=== PATIENT | female | born 1945 | race Caucasian/White ===

== ENCOUNTER 2021-05-18 16:47 | Inpatient (IN) | payer MEDICARE, OTHER ==
[~2021-05-18] VITALS: Ht 162.6 cm; Wt 64.5 kg
[~2021-05-18 16:47] MED LIST: DELZICOL400 MG PO; LEVOTHYROXINE100 MCG PO
[2021-05-18] MEDS ORDERED: COLACE100 MG PO (17:54)
[2021-05-18] MEDS ORDERED: LOSARTAN POTASS25 MG PO (17:54)
--- NOTE | 2021-05-18 21:22 | NUR ---
REPORT RECEIVED FROM SOFTWARE VERIFICATION ENGINEERISSI NIEVES. pt TO ARRIVE TO [place] AFTER COVID RESULTS.
--- NOTE | 2021-05-18 22:12 | NUR ---
pt RESTING IN BED. MD AT BEDSIDE DISCUSSING PLAN OF CARE WITH PATIENT, ASSESSING PATIENT. VSS. TEA PROVIDED TO pt. IV SITE FLUSHED WNL AND IVF INFUSING ORDERED. [facility] MUHAMMAD AT BEDSIDE AT THIS TIME. IN ROOM.
[2021-05-18] MEDS ORDERED: MULTI VITAMIN1 EACH PO (22:29)
[2021-05-18] MEDS ORDERED: CALCIUM500 M1 PO (22:29)
--- NOTE | 2021-05-18 22:52 | NUR ---
pt ASSESSMENT COMPLETE. pt RATES PAIN 2/10 IN EPIGASTRIC AREA. DENIES NEED FOR PRN PAIN MEDICATION. RESTING IN BED DRINKING MAG CITRATE AT THIS TIME. pt DENIES NAUSEA. DENIES TOILETING NEEDS. CONSENT FOR SURGERY SIGNED. PHONE SQL PROGRAMMER ANALYST PROVIDED. CALL LIGHT IN REACH.
--- NOTE | 2021-05-18 23:33 | NUR ---
CALL LIGHT ANSWERED. SBA TO RESTROOM FOR VOID AND BACK TO BED. pt DENIES ANY NEEDS. IVF INFUSING WNL. SCDS ON.
--- NOTE | 2021-05-19 02:19 | NUR ---
CHECKED ON pt. RESTING IN BED WITH EYES CLOSED. BREATHING EQUAL AND UNLABORED. LIGHTS OFF IN ROOM.
--- NOTE | 2021-05-19 02:55 | NUR ---
pt SLEEPING, AWAKENS FOR VS. VSS. pt UP TO RESTROOM SBA FOR VOID AND BACK TO BED. NO BM AT THIS TIME, pt TRIED. pt DENIES ANY PAIN. IVF INFUSING WNL. BOWEL TONES ACTIVE, ABD SOFT, NON-TENDER WITH PALPATION. LIGHTS OFF IN ROOM. SCDS ON. CALL LIGHT IN REACH.
--- NOTE | 2021-05-19 04:20 | NUR ---
pt UP TO RESTROOM FOR VOID AND BACK TO BED, CAR DESIGNER SINTA ASSIST. NO BM, PASSING GAS. PHONE CALL TO MD, NEW ORDERS RECEIVED AND REPEATED BACK TO VERIFY.
--- NOTE | 2021-05-19 05:08 | NUR ---
pt BACK TO BED FROM RESTROOM AFTER BROWN LIQUID BM. FINISHED SECOND BOTTLE OF MAG CITRATE AT THIS TIME. STOOL SAMPLE SENT TO LAB. IVF INFUSING WNL. pt DENIES ADDITIONAL NEEDS AT THIS TIME, DISCONNECTED FROM SCDS AT REQUEST FOR QUICK ROUTE TO RESTROOM. CALL LIGHT WITHIN REACH.
--- NOTE | 2021-05-19 05:20 | NUR ---
TABULATING SUPERVISOR RN NOTIFIED THAT ANTIBIOTIC NEEDED AFTER STOOL SAMPLE OBTAINED.
--- NOTE | 2021-05-19 05:59 | NUR ---
ASSISTED PT WITH BSC, HAD LOOSE STOOL, BROWN WITH CHUNKS OF BROWN STOOL. DENIES CRAMPING. SITTING ON EDGE OF BED, WITH BSC NEXT TO BED.
--- NOTE | 2021-05-19 07:05 | NUR ---
Report received from Shyla MARINELLI. Pt on BSC, states ABD cramping progressively improving. IVF infusing WNL. States no needs at this time, reviewed POC with pt who is agreeable. Call light in reach.
--- NOTE | 2021-05-19 08:15 | NUR ---
Scheduled medications administered, assessment complete. Pt states cramping "better", still c/o ABD discomfort. IVF infusing WNL. Bowel tones active. Preop checklist complete. Pt has no further requests, call light in reach.
--- NOTE | 2021-05-19 09:07 | NUR ---
PATIENT IN CHAIR RESTING AT THIS TIME. PATIENT TO BSC IND. PATIENT REFUSED WASHCLOTH THIS AM. VITALS AND I&O'S CHARTED. LINENS CHANGED. CALL LIGHT IN REACH. NO FURTHER NEEDS AT THIS TIME.
[2021-05-19] MEDS ORDERED: LEVOTHYROXINE88 MCG PO (09:41)
[2021-05-19] MEDS ORDERED: PEPCID AC10 MG PO (09:42)
--- NOTE | 2021-05-19 09:42 | NUR ---
MED REC COMPLETE
--- NOTE | 2021-05-19 10:29 | NUR ---
Call light answered, new bag IVF hung. Pt states continues to have small, frequent loose BM, yellow and watery. Has no further needs at this time
--- NOTE | 2021-05-19 11:00 | NUR ---
Pt lives in a 1 story home with her spouse. NO DME and does not require any help. Awaiting Colonoscopy and plans on dc following. Spouse will assist if needed.
--- NOTE | 2021-05-19 11:30 | NUR ---
Rounded on patient, resting in chair talking with . No needs at this time, call light in reach.
--- NOTE | 2021-05-19 12:50 | NUR ---
Scheduled ABX infusing, pt updated re: plan of care. Pt agreeable and has no needs. States having less loose BM. assisted into bed, SCDs in place.
--- NOTE | 2021-05-19 13:23 | NUR ---
Pt to procedure at this time
--- NOTE | 2021-05-19 14:22 | NUR ---
05/19/21 1422 Rebecca Brown 1418-PATIENT ARRIVED TO PACU ON 2L NC RR EVEN. PATIENT AWAKE DENIES PAIN OR NAUSEA. LAYING LEFT LATERAL. ABDOMEN SOFT AND IVF INFUSING. PATIENT ENCOURAGED TO PASS GAS.
--- NOTE | 2021-05-19 14:50 | NUR ---
Pt returns from procedure, VSS. A+O. Tolerating sips of water. No pain, no n/v. New orders received. Will cont plan of care. Call light in reach
--- NOTE | 2021-05-19 14:58 | NUR ---
PT TAKEN TO DS FOR SCOPE. WILL CONNECT UPON RETURN
--- NOTE | 2021-05-19 15:30 | NUR ---
Pt tolerating juice, yogurt and fruit. No nausea or pain, on room air. A+O. Pt states she is "Ready to go home". Will continue to monitor, discussed pt condition with
--- NOTE | 2021-05-19 16:10 | NUR ---
Pt resting in bed, IVF infusing WNL. Has no needs at this time. Call light in reach, family at bedside, attentive to patient. Call light in reach.
[2021-05-19] MEDS ORDERED: METAMUCIL660 GM PO (18:05)
--- NOTE | 2021-05-19 18:17 | NUR ---
PATIENT IN CHAIR TALKING WITH PHARMACY. VITALS AND I&O'S CHARTED. IV TAKEN OUT BY RN. IN ROOM. CALL LIGHT IN REACH. NO FURTHER NEEDS AT THIS TIME.
--- NOTE | 2021-05-19 18:30 | NUR ---
PT DISCHARGED TO HOME WITH ALL BELONGINGS IN HAND. VERBALIZES UNDERSTANDING TO ALL EDUCATION. PTS TO DRIVE PT HOME. NO PAIN OR NEEDS. PT STABLE, VSS, A+O.
--- NOTE | 2021-05-19 21:09 | OR ---
[facility] [address] [place], [place] [address] Signed DATE OF OPERATION: 05/19/2021 SURGEON: Erlin Ybarra MD PREOPERATIVE DIAGNOSES: 1. Recent rectal bleeding. CT scan findings of left-sided colonic thickening, possible recurrence of colitis. 2. History of bonafide left-sided colitis in 2008. POSTOPERATIVE DIAGNOSES: 1. Diverticulosis of sigmoid and left colon, no evidence at all of acute colitis. 2. Internal hemorrhoids. 3. NO EVIDENCE OF acute diverticulitis. PROCEDURE: Total colonoscopy to cecum with biopsy of cecum, rectum, sigmoid, and left colon. ANESTHESIA: Intravenous sedation. Fentanyl 100 mcg, Versed 5 mg. INDICATION: This 75-year-old woman, presented to the emergency room last night and was evaluated by Dr. Louise with complaints of rectal bleeding and some amount of diarrhea. She underwent a CT scan of the abdomen, which showed possible thickening of the left colon. Notably, the patient had an episode of significant colitis of the left colon in 2008. She has not been on maintenance therapy for an ulcerative colitis or other colitis problems. Her white count was only 8.1. She only had mild tenderness. Her blood per rectum was relatively bright. She was admitted with presumptive diagnosis of recurrent colitis. She is known to have diverticulosis, but there was no evidence of mesenteric stranding to suggest acute diverticulitis proper. She was treated empirically with cefoxitin as well as intravenous steroids, hydrocortisone, anticipating diagnostic colonoscopy today to better characterize the problem. She understands the risks of bleeding, infection, and perforation related to colonoscopy and wished to proceed. FINDINGS: There was no colitis. She had numerous large diverticula, but certainly no evidence of inflammation there. She had internal hemorrhoids, which were friable and likely related to her rectal bleeding. Remaining colon was normal. There was no cancer and no polyp found. Electronically Signed By: ERLIN YBARRA MD 05/19/21 9997 PATIENT NAME: ASHU TESFAYE OPERATIVE REPORT DATE OF : 43 REPORT #: [id number] PHYSICIAN: ERLIN YBARRA MD PCP: ALEX CHOWDHURY PAC REPORT IS CONFIDENTIAL AND NOT TO BE RELEASED WITHOUT AUTHORIZATION [facility] [address] [place], [place] [address] Signed DESCRIPTION OF PROCEDURE: The patient was brought to the endoscopy suite and placed in lateral decubitus position, given intravenous sedation to a point of slurred speech and nystagmus. Digital rectal examination was normal. An Olympus video colonoscope was passed in the rectum and manipulated throughout the colon noting a very good bowel prep (two bottles of magnesium citrate only) and complete intubation to the cecum with identification of the ileocecal valve and appendiceal orifice. Biopsies were taken of the cecum that appeared normal. Scope was withdrawn and careful inspection upon withdrawal of scope showed only left-sided diverticulosis and absolutely no evidence of thickening, inflammation, or other pathologic finding. Biopsies were taken of the left colon as well as the sigmoid. There was one area that had a linear scar measuring only about 1 cm or so in size. This was photographed and biopsied as well. The scope was withdrawn and the rectum appeared normal. Biopsies were obtained. Retroflexed view was attempted, but was unsuccessful for whatever reason. Clearly noted, however, were internal hemorrhoidal complexes, very likely recently having bled, though not currently bleeding. The scope was removed and the patient was taken to recovery room in good condition. CONCLUDING DIAGNOSIS: No evidence of colitis whatsoever. There were diverticula, but no sign of occult diverticulitis noted either. PLAN: We will discontinue hydrocortisone as well as antibiotics. We will initiate a high-fiber diet. Discharge will be forthcoming in the near future and additional bleeding might be addressed by hemorrhoidal banding. MD BOY Kincaid/FLORES /[id number] cc: LANA Rowe MD Electronically Signed By: ERLIN YBARRA MD 05/19/21 2109 PATIENT NAME: ASHU TESFAYE OPERATIVE REPORT DATE OF : 43 REPORT #: [id number] PHYSICIAN: ERLIN YBARRA MD PCP: ALEX CHOWDHURY PAC REPORT IS CONFIDENTIAL AND NOT TO BE RELEASED WITHOUT AUTHORIZATION [facility] [address] [place], [place] [address] Signed Copies: LINDY LOUISE MD ~ Electronically Signed By: ERLIN YBARRA MD 05/19/21 2109 PATIENT NAME: ASHU TESFAYE OPERATIVE REPORT DATE OF : 43 REPORT #: [id number] PHYSICIAN: ERLIN YBARRA MD PCP: ALEX CHOWDHURY PAC REPORT IS CONFIDENTIAL AND NOT TO BE RELEASED WITHOUT AUTHORIZATION
--- NOTE | 2021-05-19 21:09 | HP ---
[facility] [address] [place], [place] [address] Signed ADMISSION DATE: 05/18/2021 REASON FOR ADMISSION: Bloody diarrhea, thickening on CT scan. HISTORY: This 75-year-old white woman is accompanied by her and she is known to me from the past. She presented to the emergency room at approximately 7:30 p.m., was evaluated by Dr. Louise with complaints of severe crampy abdominal pain. While in the course of her evaluation, she did go to the bathroom and had a fair amount of bloody diarrhea. A CT scan was performed, which showed findings of probable colitis of the left colon. There was diverticulosis without evidence of diverticulitis. The colitis was not certain and there was no evidence of associated small-bowel obstruction. Wall thickening and slightly featureless configuration was noted to the descending colon. It is notable that she was admitted and treated by me for colitis in 2008. Her presentation was rather similar. She was treated for typical ulcerative colitis at that time ultimately with mesalamine...she has not been on that medication for a long time however as her symptoms seemed to "go away". She has no family history of colon cancer. She has no family history of colitis either. PAST MEDICAL HISTORY: Does not include anticoagulants of any sort. She has had colonoscopy, appendectomy, and sinus surgery in the past. MEDICATIONS: Include losartan, levothyroxine, and recently Colace. She has a distant history of taking mesalamine but has not been taking it for quite some time. SOCIAL HISTORY: She is . She is accompanied by her . She lives in [place]. REVIEW OF SYSTEMS: She denies any shortness of breath or chest pain. She is slightly thirsty. She has mild lower abdominal pain bilaterally located but improved since the bowel movement. She has no hematemesis. She has not had chronic rectal bleeding or chronic diarrhea particularly. PHYSICAL EXAMINATION: Electronically Signed By: ERLIN YBARRA MD 05/19/21 2109 PATIENT NAME: ASHU TESFAYE HISTORY AND PHYSICAL DATE OF : 43 REPORT #: [id number] PHYSICIAN: ERLIN YBARRA MD PCP: ALEX CHOWDHURY PAC REPORT IS CONFIDENTIAL AND NOT TO BE RELEASED WITHOUT AUTHORIZATION [facility] [address] [place], [place] [address] Signed GENERAL: This is a very pleasant white woman, who looks to be in no significant distress. VITAL SIGNS: Temperature is 98.3, pulse 69, respiration 16, blood pressure 161/78. HEENT: Mucous membranes are slightly dry. Trachea is midline. CHEST: Shows normal respiratory excursion. Pulses regular. ABDOMEN: Nondistended. She has mild tenderness in the left side of the abdomen. No sign of ascites. There is no peritonitis by any means. EXTREMITIES: Show no clubbing, cyanosis, or edema. LABORATORY STUDIES: Show white count of 8.1, hematocrit of 44.2, platelets 199,000. Chem profile essentially normal. Creatinine 1.09. Liver enzymes normal. Lipase normal at 16. Urinalysis with a specific gravity of 1.003, otherwise negative. COVID serology is negative. ASSESSMENT: Very likely the patient has recurrent bout of colitis. Previous characterization of her colitis in 2008 was that of profound left-sided colitis, highly consistent with ulcerative colitis. She was treated with Asacol at that time with good effect and over time any medication addressing colitis was discontinued. I would recommend at this point, a partial bowel prep with magnesium citrate, IV fluid administration, intravenous steroid administration empirically (hydrocortisone 100 mg IV q.8 hours) and antibiotic therapy as well as stool studies to assess for C difficile or other enteric pathogens. Most likely given the findings, ulcerative colitis will be found. MD BOY Kincaid/ARIANNAL /[id number] cc: Dr. Alex Louise MD Electronically Signed By: ERLIN YBARRA MD 05/19/21 2109 PATIENT NAME: ASHU TESFAYE HISTORY AND PHYSICAL DATE OF : 43 REPORT #: [id number] PHYSICIAN: ERLIN YBARRA MD PCP: ALEX CHOWDHURY PAC REPORT IS CONFIDENTIAL AND NOT TO BE RELEASED WITHOUT AUTHORIZATION [address] [address] Signed Copies: LINDY LOUISE MD ~ Electronically Signed By: ERLIN YBARRA MD 05/19/21 2109 PATIENT NAME: ASHU TESFAYE HISTORY AND PHYSICAL DATE OF : 43 REPORT #: [id number] PHYSICIAN: ERLIN YBARRA MD PCP: ALEX CHOWDHURY PAC REPORT IS CONFIDENTIAL AND NOT TO BE RELEASED WITHOUT AUTHORIZATION
--- NOTE | 2021-05-20 15:58 | PATH ---
[facility] [address] [facility] [place] [address] Signed SPECIMEN(S): A CECUM COLON BIOPSY SPECIMEN(S): B DESCENDING/LEFT COLON BIOPSY SPECIMEN(S): C SIGMOID COLON BIOPSY SPECIMEN(S): D RECTUM SPECIMEN SOURCE: A. CECUM COLON BIOPSY B. DESCENDING/LEFT COLON BIOPSY C. SIGMOID COLON BIOPSY D. RECTUM CLINICAL HISTORY: Pre: Abdominal pain, bloody diarrhea, probable colitis. Post: Internal hemorrhoids, diverticulosis. MICROSCOPIC DESCRIPTION: Histologic sections of all submitted blocks are examined by light microscopy. These findings, together with the gross examination, support the pathologic diagnosis. FINAL PATHOLOGIC DIAGNOSIS: A. Colon, cecum, biopsy: - Colonic mucosa with no histopathologic abnormality. - Negative for active, chronic, or microscopic colitis. - Negative for granulomas, dysplasia or malignancy. B. Colon, descending/left, biopsy: - Colonic mucosa with no histopathologic abnormality. - Negative for active, chronic, or microscopic colitis. - Negative for granulomas, dysplasia or malignancy. C. Colon, sigmoid, biopsy: - Colonic mucosa with mild architectural distortion. - Negative for active, chronic, or microscopic colitis. - Negative for granulomas, dysplasia or malignancy. D. Rectum, biopsy: - Rectal mucosa with mild architectural distortion and hyperplastic mucosal changes. - Negative for active, chronic, or microscopic colitis. - Negative for granulomas, dysplasia or malignancy. - See comment. COMMENT: Regarding specimens C and D: Mild foci of crypt architectural distortion are PATIENT NAME: ASHU TESFAYE PATHOLOGY DATE OF : 43 REPORT #: [id number] PHYSICIAN: RANDY PATHOLOGY PCP: ALEX CHOWDHURY PAC REPORT IS CONFIDENTIAL AND NOT TO BE RELEASED WITHOUT AUTHORIZATION [facility] [address] [place], [place] [address] Signed present, which is nonspecific but suggests the possibility of previous mucosal injury. No evidence of active or chronic colitis is noted. NAL:cml:C2NR GROSS DESCRIPTION: Four specimens are received in four containers labeled with "DE". A. The specimen, labeled "DE, 1," and designated on the requisition "cecum biopsy," is received in formalin and consists of one fragment of pink-davies tissue (0.3 cm in greatest dimension). The specimen is submitted entirely in cassette A1. B. The specimen, labeled "DE, 2," and designated on the requisition "descending/left biopsy," is received in formalin and consists of three fragments of pink-davies tissue (0.2-0.3 cm in greatest dimension). The specimen is submitted entirely in cassette B1. C. The specimen, labeled "DE, 3," and designated on the requisition "sigmoid biopsy," is received in formalin and consists of two fragments of pink-davies tissue (0.2 and 0.3 cm in greatest dimension). The specimen is submitted entirely in cassette C1. D. The specimen, labeled "DE, 4," and designated on the requisition "rectum biopsy," is received in formalin and consists of one fragment of pink-davies tissue (0.3 cm in greatest dimension). The specimen is submitted entirely in cassette D1. AC (under the direct supervision of a pathologist) The Gross Description was prepared using a voice recognition system. The report was reviewed for accuracy; however, sound-alike word errors, addition and/or deletions may occur. If there is any question about this report, please contact Client Services. PERFORMING LABORATORY: The technical component was performed by [employer], [address] [place] [id number] (Major Assembly Lineman: Aga Forman MD; CLIA# [id number]). Professional interpretation was performed by [facility], [address] [address] (CLIA# [id number]). Diagnostician: Tere Gayle MD Pathologist Electronically Signed 05/20/2021 PATIENT NAME: ASHU TESFAYE PATHOLOGY DATE OF : 43 REPORT #: [id number] PHYSICIAN: RANDY PATHOLOGY PCP: ALEX CHOWDHURY PAC REPORT IS CONFIDENTIAL AND NOT TO BE RELEASED WITHOUT AUTHORIZATION [facility] [address] [place], [place] [address] Signed Copies: ~ PATIENT NAME: ASHU TESFAYE PATHOLOGY DATE OF : 43 REPORT #: [id number] PHYSICIAN: RANDY PERRY PCP: ALEX CHOWDHURY PAC REPORT IS CONFIDENTIAL AND NOT TO BE RELEASED WITHOUT AUTHORIZATION
--- NOTE | 2021-05-21 21:04 | DS ---
[facility] [address] [place], [place] [address] Signed ADMISSION DATE: 05/18/2021 DISCHARGE DATE: 05/19/2021 REASON FOR ADMISSION: This 75-year-old white woman had complaints of severe lower abdominal cramping pain and blood per rectum. She was evaluated in the emergency room by Dr. Louise and a CT scan was performed, which showed an interpretation by the radiologist with thickening of the left colon suggestive of colitis. Notably, the patient suffered a bout of similar such symptoms previously in 2008 and was admitted by me and found to have colitis. She was treated for ulcerative colitis for quite some time with mesalamine. Her white count was noted to be normal. She had mild left-sided abdominal tenderness and she had blood per rectum upon bowel movements. On that basis, she was admitted for further evaluation and care for probable recurrent colitis. PERTINENT PHYSICAL EXAMINATION: GENERAL: Showed a pleasant white woman, who does not look systemically toxic. NECK: Trachea is midline. CHEST: Clear. HEART: Regular without murmur. ABDOMEN: Soft. Mild tenderness throughout, more on the left side. EXTREMITIES: Show no clubbing, cyanosis, or edema. HOSPITAL COURSE: She was considered likely to have recurrent colitis and on that basis was treated empirically with hydrocortisone 100 mg IV q.8 hours, cefoxitin antibiotic and Pepcid. She was made n.p.o. except for a bowel prep and had two bottles of magnesium citrate as her prep. On April,, she underwent colonoscopy by me where she was found to have no evidence whatsoever of colitis, only diverticular changes but no sign of inflammation. She had no polyps. She did have significant internal hemorrhoids, which may have accounted for the bleeding. Following colonoscopy, she was withdrawn from her hydrocortisone and antibiotic regimen of course, given a regular diet and anticipates discharge to home today as she is feeling much better today. Electronically Signed By: ERLIN YBARRA MD 05/21/21 2104 PATIENT NAME: ASHU TESFAYE DISCHARGE SUMMARY DATE OF : 43 REPORT #: [id number] PHYSICIAN: ERLIN YBARRA MD PCP: ALEX CHOWDHURY PAC REPORT IS CONFIDENTIAL AND NOT TO BE RELEASED WITHOUT AUTHORIZATION [facility] [address] [place] [id number] Signed I suspect her main issue was that of internal hemorrhoids with bleeding. The etiology of her cramping pain cannot be explained readily. However, but certainly there is no evidence of colonic abnormality other than diverticulosis and no evidence of acute diverticulitis plan. If she should have recurrent bleeding, she will call my office at which point we will organize for outpatient hemorrhoidal banding. I have recommend she maintain high-fiber diet and fiber supplement if possible, Metamucil specifically one scoop p.o. daily. She will follow up as well with her usual provider, SHWETA Weston. DISCHARGE MEDICATIONS: 1. Metamucil one scoop p.o. daily. If she wishes, she can continue with Colace 100 mg p.o. daily, though I do not find it effective. 2. Losartan 25 mg p.o. daily. 3. Multivitamin one tablet p.o. daily. 4. Calcium carbonate 500 mg b.i.d. 5. Synthroid 80 mcg p.o. daily. 6. Loratadine 10 mg p.o. daily. DISCHARGE DIAGNOSES: 1. Lower abdominal pain with diarrhea (limited) and blood per rectum. 2. Colonoscopy confirming no evidence of acute colitis, only internal hemorrhoids and diverticulosis without inflammation. 3. Distant history of left-sided colitis in 2008. 4. Hypothyroidism. 5. Chronic constipation. 6. Hypertension. Erlin Ybarra MD /MODL /[id number] cc: SHWETA Weston. Lindy Louise MD Electronically Signed By: ERLIN YBARRA MD 05/21/21 2104 PATIENT NAME: ASHU TESFAYE DISCHARGE SUMMARY DATE OF : 43 REPORT #: [id number] PHYSICIAN: ERLIN YBARRA MD PCP: ALEX CHOWDHURY [facility] REPORT IS CONFIDENTIAL AND NOT TO BE RELEASED WITHOUT AUTHORIZATION [address] [address] Signed Copies: LINDY LOUISE MD ~ Electronically Signed By: ERLIN YBARRA MD 05/21/21 2104 PATIENT NAME: ASHU TESFAYE DISCHARGE SUMMARY DATE OF : 43 REPORT #: [id number] PHYSICIAN: ERLIN YBARRA MD PCP: ALEX CHOWDHURY PAC REPORT IS CONFIDENTIAL AND NOT TO BE RELEASED WITHOUT AUTHORIZATION
== END 2021-05-19 18:30 | disposition home or self-care (01) | DRG 395 ==
LOC: ED 16:47 → MS 16:48 → ED 16:48 → MS 16:48
PROVIDERS: ADMIT Surgery; ATTEND Surgery
PROC: 0DBN8ZX Excision of Sigmoid Colon, Via Natural or Artificial Opening Endoscopic, Diagnostic (ICD-10-PCS; 2021-05-19)
PROC: 0DBP8ZX Excision of Rectum, Via Natural or Artificial Opening Endoscopic, Diagnostic (ICD-10-PCS; 2021-05-19)
PROC: 0DBG8ZX Excision of Left Large Intestine, Via Natural or Artificial Opening Endoscopic, Diagnostic (ICD-10-PCS; 2021-05-19)
PROC: 0DBH8ZX Excision of Cecum, Via Natural or Artificial Opening Endoscopic, Diagnostic (ICD-10-PCS; principal; 2021-05-19 13:00)
DX: K64.8 Other hemorrhoids (principal); I10 Essential (primary) hypertension; E03.9 Hypothyroidism, unspecified; K57.30 Diverticulosis of large intestine without perforation or abscess without bleeding; K59.09 Other constipation; Z90.49 Acquired absence of other specified parts of digestive tract; Z87.891 Personal history of nicotine dependence; Z79.890 Hormone replacement therapy; Z79.899 Other long term (current) drug therapy
CPT/HCPCS: 51701; 74177; 80053; 81001; 83690; 85025; 87045; 87046; 87493; 88305; 99153; 99285-25; G0500; J0694; J1644; J1720; J2250; J3010; J7030; J7121; Q9967; U0003

== ENCOUNTER 2024-05-24 23:25 | Emergency (ER) | payer MEDICARE, OTHER ==
[~2024-05-24] VITALS: Ht 162.6 cm; Wt 63.6 kg
[~2024-05-24 23:25] MED LIST changes: +CALCIUM500 M1 PO; +COLACE100 MG PO; +LEVOTHYROXINE88 MCG PO; +LOSARTAN POTASS25 MG PO; +METAMUCIL660 GM PO; +MULTI VITAMIN1 EACH PO; +PEPCID AC10 MG PO
[2024-05-24] MEDS ORDERED: MAGNESIUM OXID420 MG PO (23:51)
[2024-05-25] MEDS ORDERED: HYDROCODONE BIT/ACETAMINOPHEN 5/325 MG 1 TAB HOME.PACK PO ONE (02:00)
[2024-05-25] MEDS ORDERED: HYDROCODON-ACE1 EA10 PO (02:02)
[2024-05-25 02:50] VITALS: BP 133/67
== END 2024-05-25 02:55 | disposition home or self-care (01) ==
LOC: ED 23:25
DX: M84.48XA Pathological fracture, other site, initial encounter for fracture (principal); M16.0 Bilateral primary osteoarthritis of hip; M48.061 Spinal stenosis, lumbar region without neurogenic claudication; E03.9 Hypothyroidism, unspecified; R03.0 Elevated blood-pressure reading, without diagnosis of hypertension; Z79.890 Hormone replacement therapy; Z79.899 Other long term (current) drug therapy
CPT/HCPCS: 72192; 99284; A9270

== ENCOUNTER 2024-07-31 03:40 | Emergency (ER) | payer MEDICARE, OTHER ==
[~2024-07-31] VITALS: Ht 162.6 cm; Wt 67.4 kg
--- OUTSIDE RECORDS SUMMARY | ~2024-07-31 | XMS | Continuity of Care Document ---
Demographics + + + | Address | [address] | | | [place] [address] | + + + | Preferred Language | Unknown | + + + | Marital Status | Unknown | + + + | Protestant Affiliation | Unknown | + + + | Race | White | + + + | Ethnic Group | Not or | + + + Author + + + | Author | [facility] | + + + | Organization | [facility] | + + + | Address | [address] | | | [place] [address] | + + + | Phone | | + + + Care Team Providers + + + + | Care Hog Buyer Name | Role | Phone | + + + + Unavailable | Unavailable | + + + + Allergies No information. Encounters No information. Functional Status No information. Immunizations No information. Medications No information. Problems + + + + | date | description | facility | + + + + | 2024-06-14 22:27:21 | Radiculopathy, lumbar | [facility] | | | region | | + + + + Procedures No information. Results/Labs No information. Social History +--------+ + + | date | description | facility | +--------+ + + Vital Signs No information."
[~2024-07-31 03:40] MED LIST changes: +HYDROCODON-ACE1 EA10 PO; +MAGNESIUM OXID420 MG PO
[2024-07-31] MEDS ORDERED: IBLOOD GLUCOSE TEST STRIP 1 EA TEST XX ONE (03:45)
[2024-07-31] MEDS ORDERED: fentaNYL citrate 100 MCG/2 ML VIAL IV PRN (04:00)
[2024-07-31 04:29] LABS: BASOPHILS 0.3 % (0-2); EOSINOPHILS 0.6 % (0-6); HEMATOCRIT 41.2 % (35.0-50.0); HEMOGLOBIN 14.1 g/dL (12.0-18.0); LYMPHOCYTES 9.9 % (24-44); MCHC 34.1 g/dl (30-36); MCV 93.8 fl (81-99); MONOCYTES 7.5 % (0-12); NEUTROPHILS 81.7 % (39-80); PLATELET COUNT 230 K/uL (140-440); RBC 4.39 M/ul (4.3-5.7); RDW 13.9 (10.5-15.0)
[2024-07-31 04:40] LABS: PARTIAL THROMBOPLASTIN TIME 26.2 Sec (22.9-41.3)
[2024-07-31 04:41] LABS: INR 1.02 (0.80-1.30); PROTIME 12.7 Sec (11.2-14.2)
[2024-07-31 04:47] LABS: ALBUMIN 3.3 g/dL (3.4-5.0); ALBUMIN/GLOBULIN RATIO 1.14 (1.1-2.4); ANION GAP 10.8 (7-21); BILIRUBIN, TOTAL 0.6 ng/dL (0.2-1.0); BUN/CREATININE RATIO 13.13 (6.0-28.6); CALCIUM 8.8 mg/dL (8.5-10.1); CREATININE, SERUM 0.99 mg/dL (0.55-1.02); POTASSIUM 3.8 mmol/L (3.5-5.1); PROTEIN, TOTAL 6.2 g/dL (6.4-8.2)
[2024-07-31] MEDS ORDERED: GABAPENTIN ER300 MG PO (04:54)
[2024-07-31] MEDS ORDERED: ondansetron HCL 4 MG/2 ML VIAL IV ONE (05:45)
[2024-07-31 05:59] LABS: AMPHETAMINES, URINE NEGATIVE (NEGATIVE); BARBITURATES, URINE NEGATIVE (NEGATIVE); BENZODIAZEPINE, URINE NEGATIVE (NEGATIVE); BUPRENORPHINE, URINE NEGATIVE (NEGATIVE); CANNABINOID, URINE NEGATIVE (NEGATIVE); COCAINE, URINE NEGATIVE (NEGATIVE); ECSTASY, URINE NEGATIVE (NEGATIVE); FENTANYL, URINE NEGATIVE (NEGATIVE); METHADONE, URINE NEGATIVE (NEGATIVE); OPIATES, URINE NEGATIVE (NEGATIVE); OXYCODONE, URINE NEGATIVE (NEGATIVE); PHENCYCLIDINE, URINE NEGATIVE (NEGATIVE)
[2024-07-31] MEDS ORDERED: SODIUM CHLORIDE 0.9% 1,000 ML IV ONE (06:30)
[2024-07-31] MEDS ORDERED: SODIUM CHLORIDE 0.9% 1,000 ML IV SCH (06:30)
[2024-07-31] MEDS ORDERED: K2 PLUS D3 TAB1 EACH PO (07:15)
[2024-07-31 09:21] VITALS: BP 131/66
--- NOTE | 2024-07-31 13:34 | EKG ---
[facility] [address] [facility] [place], [place] [address] Signed Sinus rhythm with 1st degree AV block Low voltage QRS Borderline ECG No previous ECGs available Confirmed by Jessica Tang MD ([id number]) on 07/31/2024 1:33:59 PM Electronically Signed By: JESSICA TANG 07/31/24 1334 PATIENT NAME: ASHU TESFAYE DAXA Electrocardiogram DATE OF : 43 PHYSICIAN: JESSICA TANG REPORT #: [id number] REPORT IS CONFIDENTIAL AND NOT TO BE RELEASED WITHOUT AUTHORIZATION
== END 2024-07-31 09:00 | disposition short-term general hospital (02) ==
LOC: ED 03:40
PROVIDERS: Family Medicine
DX: I63.511 Cerebral infarction due to unspecified occlusion or stenosis of right middle cerebral artery (principal); S32.501A Unspecified fracture of right pubis, initial encounter for closed fracture; S72.092A Other fracture of head and neck of left femur, initial encounter for closed fracture; S32.10XA Unspecified fracture of sacrum, initial encounter for closed fracture; W18.30XA Fall on same level, unspecified, initial encounter; Z79.899 Other long term (current) drug therapy; Z79.890 Hormone replacement therapy
CPT/HCPCS: 36415; 51702; 70450; 70496; 70498; 71045; 73700; 80053; 80307; 84484; 85025; 85610; 85730; 93005; 93010; 99285-25; J2405; J3010; J7030; Q3014; Q9967

== ENCOUNTER 2024-10-04 09:58 | Emergency (ER) | payer MEDICARE, OTHER ==
[~2024-10-04] VITALS: Ht 162.6 cm; Wt 53.7 kg
[~2024-10-04 09:58] MED LIST changes: +GABAPENTIN ER300 MG PO; +K2 PLUS D3 TAB1 EACH PO
--- OUTSIDE RECORDS SUMMARY | 2024-10-04 10:05 | XMS ---
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 Kenny VISIT COUNT (12 MO.) 4 [facility] TOTAL 4 NOTE: Visits indicate total known visits. 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 - Facial weakness - Fall on same level, unspecified, initial encounter - Hormone replacement therapy - Other fracture of head and neck of left femur, initial encounter for closed fracture - Other terminal system operator (current) drug therapy - Unspecified fracture of right pubis, initial encounter for closed fracture - Unspecified fracture of sacrum, initial encounter for closed fracture 05/24/2024 23:25 [facility] [place] TYPE: Emergency COMPLAINT: - BACK PAIN DIAGNOSES: - Bilateral primary osteoarthritis of hip - Elevated blood-pressure reading, without diagnosis of hypertension - Hormone replacement therapy - Hypothyroidism, unspecified - Other terminal system operator (current) drug therapy - Pathological fracture, other site, initial encounter for fracture - Spinal stenosis, lumbar region without neurogenic claudication INPATIENT VISIT TRACKING (12 MO.) 08/06/2024 14:13 [facility] [place] TYPE: Inpatient Rehab DIAGNOSES: - Cerebral infarction, unspecified - Fracture of unspecified part of neck of left femur, initial encounter for closed fracture - Hemiplegia and hemiparesis following cerebral infarction affecting left non-dominant side [facility] DIAGNOSES: - Cerebral infarction due to embolism of unspecified middle cerebral artery - - - Stroke 07/31/2024 11:05 [facility] [place] TYPE: Neuro Surgery DIAGNOSES: - 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
[2024-10-04] MEDS ORDERED: ELIQUIS5 MG PO (10:31)
[2024-10-04 11:29] LABS: BASOPHILS 0.6 % (0-2); EOSINOPHILS 0.3 % (0-6); HEMOGLOBIN 14.6 g/dL (12.0-18.0); LYMPHOCYTES 19.4 % (24-44); MCH 30.7 (27-36); MCHC 32.5 g/dl (30-36); MCV 94.4 fl (81-99); MONOCYTES 9.7 % (0-12); PLATELET COUNT 240 K/uL (140-440); RBC 4.76 M/ul (4.3-5.7); RDW 15.2 (10.5-15.0)
[2024-10-04 11:43] LABS: ALBUMIN 3.9 g/dL (3.4-5.0); ALBUMIN/GLOBULIN RATIO 1.39 (1.1-2.4); ANION GAP 14.8 (7-21); BILIRUBIN, TOTAL 0.7 ng/dL (0.2-1.0); BUN/CREATININE RATIO 7.47 (6.0-28.6); CALCIUM 9.6 mg/dL (8.5-10.1); CREATININE, SERUM 1.07 mg/dL (0.55-1.02); POTASSIUM 3.8 mmol/L (3.5-5.1); PROTEIN, TOTAL 6.7 g/dL (6.4-8.2)
[2024-10-04 15:32] VITALS: BP 135/63
--- NOTE | 2024-10-04 19:35 | EKG ---
[facility] [address] [place] [id number] Signed Normal sinus rhythm Normal ECG When compared with ECG of 31-JUL-2024 04:15, CA interval has decreased Confirmed by Salma Amin MD ([id number]) on 10/04/2024 7:35:06 PM Electronically Signed By: SALMA AMIN MD 10/04/241934 PATIENT NAME: ASHU TESFAYE Electrocardiogram DATE OF : 43 PHYSICIAN: SALMA AMIN MD REPORT #: [id number] REPORT IS CONFIDENTIAL AND NOT TO BE RELEASED WITHOUT AUTHORIZATION
== END 2024-10-04 15:33 | disposition home or self-care (01) ==
LOC: ED 09:58
PROVIDERS: Emergency Medicine
DX: K44.9 Diaphragmatic hernia without obstruction or gangrene (principal); R19.5 Other fecal abnormalities; I10 Essential (primary) hypertension; E03.9 Hypothyroidism, unspecified; Z79.899 Other long term (current) drug therapy; Z79.01 Long term (current) use of anticoagulants; Z79.890 Hormone replacement therapy
CPT/HCPCS: 36415; 74177; 80053; 85025; 93005; 93010; 99284-25; Q9967

== ENCOUNTER 2025-04-29 09:58 | Emergency (ER) | payer MEDICARE, OTHER ==
[~2025-04-29] VITALS: Ht 162.6 cm; Wt 57.0 kg
[~2025-04-29 09:58] MED LIST changes: +ELIQUIS5 MG PO
[2025-04-29] MEDS ORDERED: LO-DOSE ASPIRIN81 MG PO (10:22)
[2025-04-29 12:11] VITALS: BP 148/46
== END 2025-04-29 12:12 | disposition home or self-care (01) ==
LOC: ED 09:58
DX: M79.89 Other specified soft tissue disorders (principal); I10 Essential (primary) hypertension; E03.9 Hypothyroidism, unspecified; Z79.82 Long term (current) use of aspirin; Z79.899 Other long term (current) drug therapy
CPT/HCPCS: 93926; 93971; 99283-25

== ENCOUNTER 2025-05-18 15:06 | Emergency (ER) | payer MEDICARE, OTHER ==
[~2025-05-18] VITALS: Ht 162.6 cm; Wt 55.0 kg
[~2025-05-18 15:06] MED LIST changes: +LO-DOSE ASPIRIN81 MG PO
--- OUTSIDE RECORDS SUMMARY | 2025-05-18 15:08 | XMS ---
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 Kenny VISIT COUNT (12 MO.) 6 [facility] TOTAL 6 NOTE: Visits indicate total known visits. ED/UCC VISIT TRACKING (12 MO.) 05/18/2025 15:06 [facility] [place] TYPE: Emergency COMPLAINT: - FOOT PAIN 04/29/2025 09:58 [facility] [place] TYPE: Emergency COMPLAINT: - FOOT SWELLING DIAGNOSES: - Essential (primary) hypertension - Hypothyroidism, unspecified - penitentiary (current) use of aspirin - Other manager intermediate (current) drug therapy - Other specified soft tissue disorders - Pain in right foot 10/04/2024 09:59 [facility] [place] TYPE: Emergency COMPLAINT: - BLOOD IN STOOL DIAGNOSES: - Diaphragmatic hernia without obstruction or gangrene - Epigastric pain - Essential (primary) hypertension - Hormone replacement therapy - Hypothyroidism, unspecified - terminal block assembler (current) use of anticoagulants - Other fecal abnormalities - Other manager intermediate (current) drug therapy 09/20/2024 10:28 [facility] [place] TYPE: Emergency [...] initial encounter for closed fracture - Other [facility] ([facility] drug therapy - Unspecified fracture of right pubis, initial encounter for closed fracture - Unspecified fracture of sacrum, initial encounter for closed fracture 05/24/2024 23:25 [facility] [place] TYPE: Emergency COMPLAINT: - BACK PAIN DIAGNOSES: - Bilateral primary osteoarthritis of hip - Elevated blood-pressure reading, without diagnosis of hypertension - Hormone replacement therapy - Hypothyroidism, unspecified - Other manager intermediate (current) drug therapy - Pathological fracture, other site, initial encounter for fracture - Spinal stenosis, lumbar region without neurogenic claudication INPATIENT VISIT TRACKING (12 MO.) 08/06/2024 14:13 [facility] [place] TYPE: Inpatient Rehab DIAGNOSES: - Cerebral infarction, unspecified - Fracture of unspecified part of neck of left femur, initial encounter for closed fracture - Hemiplegia and hemiparesis following cerebral infarction affecting left non-dominant side 08/06/2024 12:41 [facility] [place] TYPE: Inpatient DIAGNOSES: - Cerebral infarction due to embolism of unspecified middle cerebral artery - - - Stroke 07/31/2024 11:05 [facility] [place] TYPE: Neuro Surgery DIAGNOSES: - 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
[2025-05-18] MEDS ORDERED: VITAMIN D310 MC5 PO (15:30)
[2025-05-18] MEDS ORDERED: CALCIUM500 MG PO (15:30)
[2025-05-18 16:16] LABS: BASOPHILS 0.9 % (0.1-1.2); EOSINOPHILS 2.7 % (0.7-5.8); HEMATOCRIT 41.5 % (34.1-44.9); HEMOGLOBIN 14.3 g/dL (11.2-15.7); LYMPHOCYTES 23.9 % (19.3-51.7); MCH 31.4 PG (25.6-32.2); MCHC 34.5 g/dL (32.2-35.5); MONOCYTES 11.6 % (4.7-12.5); NEUTROPHILS 60.7 % (34.0-71.1); PLATELET COUNT 201 K/uL (182-369); RBC 4.56 M/uL (3.93-5.22)
[2025-05-18 16:20] LABS: BILIRUBIN, URINE NEGATIVE (negative); BLOOD/HGB, URINE TRACE-I (Negative); KETONE, URINE NEGATIVE (Negative); LEUK ESTERASE, URINE TRACE (negative); NITRITE, URINE NEGATIVE (negative)
[2025-05-18 16:25] LABS: EPITHELIAL CELLS, URINE SQUAMOUS 1+ /lpf (0-1+)
[2025-05-18 16:26] LABS: BACTERIA, URINE NONE SEEN /hpf (negative); CASTS, URINE NONE SEEN \\lpf; COLLECTION TYPE, URINE CLEAN CATCH; CRYSTALS, URINE NONE SEEN (0-1+); REFLEX CULTURE, URINE No (No)
[2025-05-18 16:32] LABS: ALBUMIN 3.6 g/dL (3.4-5.0); ALBUMIN/GLOBULIN RATIO 1.2 (1.1-2.4); ANION GAP 9.7 (7-21); BILIRUBIN, TOTAL 0.5 mg/dL (0.2-1.0); BUN/CREATININE RATIO 20.79 (6.0-28.6); CALCIUM 9.2 mg/dL (8.5-10.1); CREATININE, SERUM 1.01 mg/dL (0.55-1.02); POTASSIUM 3.7 mmol/L (3.5-5.1); PROTEIN, TOTAL 6.6 g/dL (6.4-8.2)
[2025-05-18] MEDS ORDERED: ONDANSETRON 4 MG TAB ODT SL ONE (17:00)
[2025-05-18] MEDS ORDERED: OXYCODONE/APAP 5/325 TAB PO ONE (17:00)
[2025-05-18 17:18] LABS: ERYTHROCYTE SEDIMENTATION RATE 4
[2025-05-18 18:54] VITALS: BP 142/67
== END 2025-05-18 18:54 | disposition home or self-care (01) ==
LOC: ED 15:06
PROVIDERS: Emergency Medicine
DX: M25.572 Pain in left ankle and joints of left foot (principal); M79.652 Pain in left thigh; E03.9 Hypothyroidism, unspecified; Z86.73 Personal history of transient ischemic attack (TIA), and cerebral infarction without residual deficits; Z79.82 Long term (current) use of aspirin; Z79.899 Other long term (current) drug therapy
CPT/HCPCS: 36415; 73502; 73610; 80053; 81001; 84550; 85025; 85651; 86140; 99283; A9270